=== PATIENT | male | born 1940 | race Caucasian/White ===

== ENCOUNTER → 2021-02-02 10:38 | Outpatient (BNVA) | payer MEDICARE, MEDICAID, SELFPAY | PROVIDERS: PCP Internal Medicine; Visit Provider Urology | DX: N40.0 Benign prostatic hyperplasia without lower urinary tract symptoms (principal) | CPT/HCPCS: 99202 ==

== ENCOUNTER 2021-05-02 07:35 | Outpatient (REF) | payer MEDICARE, MEDICAID, SELFPAY ==
[2021-05-02 10:41] LABS: Estimated Average Glucose 197 mg/dL; Hemoglobin A1c % 8.5 %
[2021-05-02 10:43] LABS: Alanine Aminotransferase 25 U/L (0-40); Albumin Level 4.4 g/dL (3.5-5.0); Alkaline Phosphatase 38 U/L (39-117); Anion Gap 14 (12-20); Aspartate Amino Transferase 16 U/L (5-37); Bilirubin Total 0.5 mg/dL (0.0-1.0); Blood Urea Nitrogen 16 mg/dL (9-16); Calcium 9.9 mg/dL (8.4-10.2); Carbon Dioxide 27 mmol/L (22-29); Chloride 103 mmol/L (96-108); Estimated Glomerular Filt Rate > 60; Glucose Fasting 150 mg/dL (60-99); Potassium 4.3 mmol/L (3.3-5.1); Sodium 140 mmol/L (135-145); Total Protein 7.2 g/dL (6.5-8.0)
== END 2021-05-02 07:36 | disposition home or self-care (01) ==
LOC: HO.10HDL 07:35
PROVIDERS: Visit Provider Internal Medicine
DX: E11.65 Type 2 diabetes mellitus with hyperglycemia (principal); E78.00 Pure hypercholesterolemia, unspecified; I10 Essential (primary) hypertension
CPT/HCPCS: 36415; 80053; 83036

== ENCOUNTER 2021-08-05 07:45 | Outpatient (REF) | payer MEDICARE, MEDICAID, SELFPAY ==
[2021-08-05 11:34] LABS: Alanine Aminotransferase 18 U/L (0-40); Albumin Level 4.3 g/dL (3.5-5.0); Alkaline Phosphatase 41 U/L (39-117); Anion Gap 13 (12-20); Aspartate Amino Transferase 16 U/L (5-37); Bilirubin Total 0.4 mg/dL (0.0-1.0); Blood Urea Nitrogen 20 mg/dL (9-16); Calcium 9.6 mg/dL (8.4-10.2); Carbon Dioxide 28 mmol/L (22-29); Chloride 103 mmol/L (96-108); Estimated Glomerular Filt Rate > 60; Glucose Fasting 118 mg/dL (60-99); Potassium 4.3 mmol/L (3.3-5.1); Sodium 140 mmol/L (135-145); Total Protein 7.3 g/dL (6.5-8.0)
== END 2021-08-05 07:46 | disposition home or self-care (01) ==
LOC: HO.10HDL 07:45
PROVIDERS: Visit Provider Internal Medicine
DX: E11.65 Type 2 diabetes mellitus with hyperglycemia (principal); E78.00 Pure hypercholesterolemia, unspecified; I10 Essential (primary) hypertension; N40.0 Benign prostatic hyperplasia without lower urinary tract symptoms
CPT/HCPCS: 36415; 80053

== ENCOUNTER 2022-02-01 07:38 | Outpatient (REF) | payer MEDICARE, MEDICAID, SELFPAY ==
[2022-02-01 10:54] LABS: Estimated Average Glucose 194 mg/dL; Hemoglobin A1c % 8.4 %
[2022-02-01 11:00] LABS: Alanine Aminotransferase 20 U/L (0-40); Albumin Level 4.4 g/dL (3.5-5.0); Alkaline Phosphatase 41 U/L (39-117); Anion Gap 15 (12-20); Aspartate Amino Transferase 18 U/L (5-37); Bilirubin Total 0.3 mg/dL (0.0-1.0); Blood Urea Nitrogen 15 mg/dL (9-16); Calcium 9.4 mg/dL (8.4-10.2); Carbon Dioxide 27 mmol/L (22-29); Chloride 103 mmol/L (96-108); Estimated Glomerular Filt Rate > 60; Glucose Fasting 105 mg/dL (60-99); Potassium 4.1 mmol/L (3.3-5.1); Sodium 141 mmol/L (135-145); Total Protein 7.4 g/dL (6.5-8.0)
== END 2022-02-01 07:39 | disposition home or self-care (01) ==
LOC: HO.10HDL 07:38
PROVIDERS: Visit Provider Internal Medicine
DX: E11.65 Type 2 diabetes mellitus with hyperglycemia (principal); E78.00 Pure hypercholesterolemia, unspecified; I10 Essential (primary) hypertension; N40.0 Benign prostatic hyperplasia without lower urinary tract symptoms
CPT/HCPCS: 36415; 80053; 83036

== ENCOUNTER 2022-02-10 07:30 | Outpatient (REF) | payer MEDICARE, MEDICAID, SELFPAY ==
[2022-02-10 10:43] LABS: Alanine Aminotransferase 14 U/L (0-40); Albumin Level 4.2 g/dL (3.5-5.0); Alkaline Phosphatase 51 U/L (39-117); Anion Gap 14 (12-20); Aspartate Amino Transferase 12 U/L (5-37); Bilirubin Total 0.4 mg/dL (0.0-1.0); Blood Urea Nitrogen 22 mg/dL (9-16); Calcium 9.5 mg/dL (8.4-10.2); Carbon Dioxide 28 mmol/L (22-29); Chloride 102 mmol/L (96-108); Estimated Glomerular Filt Rate > 60; Glucose Random 152 mg/dL (60-115); Potassium 4.5 mmol/L (3.3-5.1); Sodium 139 mmol/L (135-145)
[2022-02-10 10:45] LABS: Estimated Average Glucose 194 mg/dL; Hemoglobin A1c % 8.4 %
[2022-02-13 14:12] LABS: Lyme Blot >10.00 index
[2022-02-14 08:06] LABS: Lyme Abs Screen POSITIVE
[2022-02-15 14:32] LABS: 18 KD (IgG) Band REACTIVE; 23 KD (IgG) Band REACTIVE; 23 KD (IgM) Band REACTIVE; 28 KD (IgG) Band REACTIVE; 30 KD (IgG) Band REACTIVE; 39 KD (IgM) Band NON-REACTIVE; 39KD (IgG) Band REACTIVE; 41 KD (IgM) Band NON-REACTIVE; 41KD (IgG) Band REACTIVE; 45 KD (IgG) Band REACTIVE; 58 KD (IgG) Band REACTIVE; 66 KD (IgG) Band REACTIVE; 93 KD (IgG) Band REACTIVE; Lyme IgG Blot Interp POSITIVE (NEGATIVE); Lyme IgM Blot Interp NEGATIVE (NEGATIVE)
== END 2022-02-10 07:31 | disposition home or self-care (01) ==
LOC: HO.10HDL 07:30
PROVIDERS: Visit Provider Internal Medicine
DX: E11.65 Type 2 diabetes mellitus with hyperglycemia (principal); E78.00 Pure hypercholesterolemia, unspecified; I10 Essential (primary) hypertension
CPT/HCPCS: 36415; 80053; 83036; 86617; 86618

== ENCOUNTER 2022-04-20 07:38 | Outpatient (REF) | payer MEDICARE, MEDICAID, SELFPAY ==
[2022-04-20 11:07] LABS: Estimated Average Glucose 189 mg/dL; Hemoglobin A1c % 8.2 %
[2022-04-20 11:10] LABS: Alanine Aminotransferase 22 U/L (0-40); Albumin Level 4.4 g/dL (3.5-5.0); Alkaline Phosphatase 34 U/L (39-117); Anion Gap 15 (12-20); Aspartate Amino Transferase 18 U/L (5-37); Bilirubin Total 0.5 mg/dL (0.0-1.0); Blood Urea Nitrogen 19 mg/dL (9-16); Calcium 9.8 mg/dL (8.4-10.2); Carbon Dioxide 27 mmol/L (22-29); Chloride 104 mmol/L (96-108); Estimated Glomerular Filt Rate > 60; Glucose Fasting 104 mg/dL (60-99); Potassium 4.2 mmol/L (3.3-5.1); Sodium 142 mmol/L (135-145); Total Protein 7.1 g/dL (6.5-8.0)
[2022-04-24 21:42] LABS: Lyme Blot 8.87 index
[2022-04-27 09:40] LABS: Lyme Abs Screen POSITIVE
[2022-04-27 09:53] LABS: 18 KD (IgG) Band REACTIVE; 23 KD (IgG) Band REACTIVE; 23 KD (IgM) Band REACTIVE; 28 KD (IgG) Band REACTIVE; 30 KD (IgG) Band REACTIVE; 39 KD (IgM) Band NON-REACTIVE; 39KD (IgG) Band REACTIVE; 41 KD (IgM) Band NON-REACTIVE; 41KD (IgG) Band REACTIVE; 45 KD (IgG) Band REACTIVE; 58 KD (IgG) Band REACTIVE; 66 KD (IgG) Band REACTIVE; 93 KD (IgG) Band REACTIVE; Lyme IgG Blot Interp POSITIVE (NEGATIVE); Lyme IgM Blot Interp NEGATIVE (NEGATIVE)
== END 2022-04-20 07:39 | disposition home or self-care (01) ==
LOC: HO.10HDL 07:38
PROVIDERS: Visit Provider Internal Medicine
DX: E11.65 Type 2 diabetes mellitus with hyperglycemia (principal); E78.00 Pure hypercholesterolemia, unspecified; I10 Essential (primary) hypertension; Z68.33 Body mass index [BMI] 33.0-33.9, adult
CPT/HCPCS: 36415; 80053; 83036; 86617; 86618

== ENCOUNTER 2022-08-03 07:47 | Outpatient (REF) | payer MEDICARE, MEDICAID, SELFPAY ==
[2022-08-03 10:56] LABS: MANUAL DIFF FLAG NO
[2022-08-03 11:25] LABS: Basophils Percent Auto 0.4 % (0-2); Eosinophils Absolute Auto 0.1 X10*3/uL (0.0-0.4); Eosinophils Percent Auto 1.9 % (0-4); Hematocrit 40.5 % (42.0-52.0); Hemoglobin 13.9 g/dl (14.0-18.0); Imm Gran Abs Auto 0.02 X10*3/uL (0.00-0.03); Imm Gran Pct Auto 0.3 % (0.0-0.4); Lymphocytes Absolute Auto 2.4 X10*3/uL (1.2-4.9); Lymphocytes Percent Auto 35.2 % (20-40); Mean Corpuscular HGB Conc 34.3 g/dl (31.0-36.0); Mean Corpuscular Volume 90.4 fL (80.0-98.0); Mean Platelet Volume 10.7 fL (9.4-12.4); Monocytes Absolute Auto 0.6 X10*3/uL (0.1-1.2); Monocytes Percent Auto 8.4 % (2-11); Neutrophils Absolute Auto 3.7 x10*3/uL (2.0-8.3); Neutrophils Percent Auto 53.8 % (45-73); Platelet Count 151 X10*3/uL (160-400); Red Blood Count 4.48 X10*6/uL (4.60-5.80); Red Cell Distribution Width 12.7 % (11.0-16.0); White Blood Count 6.9 X10*3/uL (4.8-10.8)
[2022-08-03 11:42] LABS: Microalbum/Creatinine Ratio Ur 8.7 ug/mg cr
[2022-08-03 11:50] LABS: Estimated Average Glucose 229 mg/dL; Hemoglobin A1c % 9.6 %
[2022-08-03 12:03] LABS: Alanine Aminotransferase 30 U/L (0-40); Albumin Level 4.1 g/dL (3.5-5.0); Alkaline Phosphatase 34 U/L (39-117); Anion Gap 14 (12-20); Aspartate Amino Transferase 19 U/L (5-37); Bilirubin Total 0.6 mg/dL (0.0-1.0); Blood Urea Nitrogen 13 mg/dL (9-16); Calcium 9.4 mg/dL (8.4-10.2); Carbon Dioxide 26 mmol/L (22-29); Chloride 107 mmol/L (96-108); Cholesterol 136 mg/dL; Estimated Glomerular Filt Rate > 60; Glucose Fasting 82 mg/dL (60-99); HDL Cholesterol 42 mg/dL; LDL Cholesterol Calculated 71 mg/dl; Sodium 143 mmol/L (135-145); Total Protein 6.6 g/dL (6.5-8.0); Triglycerides 119 mg/dL
[2022-08-03 12:06] LABS: Thyroid Stimulating Hormone 2.12 uIU/mL (0.32-4.0); Vitamin B12 494 pg/mL (200-900)
== END 2022-08-03 07:48 | disposition home or self-care (01) ==
LOC: HO.10HDL 07:47
PROVIDERS: Visit Provider Internal Medicine
DX: A69.20 Lyme disease, unspecified (principal); E11.65 Type 2 diabetes mellitus with hyperglycemia; I10 Essential (primary) hypertension; N40.1 Benign prostatic hyperplasia with lower urinary tract symptoms
CPT/HCPCS: 36415; 80053; 80061; 82043; 82607; 83036; 84443; 85025

== ENCOUNTER 2022-11-02 08:14 | Outpatient (REF) | payer MEDICARE, MEDICAID, SELFPAY ==
[2022-11-02 10:44] LABS: Estimated Average Glucose 186 mg/dL; Hemoglobin A1c % 8.1 %
[2022-11-02 10:57] LABS: Alanine Aminotransferase 24 U/L (0-40); Albumin Level 4.2 g/dL (3.5-5.0); Alkaline Phosphatase 34 U/L (39-117); Anion Gap 10 (12-20); Aspartate Amino Transferase 19 U/L (5-37); Bilirubin Total 0.5 mg/dL (0.0-1.0); Blood Urea Nitrogen 17 mg/dL (9-16); Calcium 9.4 mg/dL (8.4-10.2); Carbon Dioxide 29 mmol/L (22-29); Chloride 106 mmol/L (96-108); Estimated Glomerular Filt Rate > 60; Glucose Random 112 mg/dL (60-115); Potassium 4.4 mmol/L (3.3-5.1); Sodium 141 mmol/L (135-145); Total Protein 6.9 g/dL (6.5-8.0)
[2022-11-02 11:06] LABS: Prostate Specific Antigen Scr 1.06 ng/mL (<0.05-4.0)
== END 2022-11-02 08:15 | disposition home or self-care (01) ==
LOC: HO.10HDL 08:14
PROVIDERS: Visit Provider Internal Medicine
DX: Z00.00 Encounter for general adult medical examination without abnormal findings (principal); E11.65 Type 2 diabetes mellitus with hyperglycemia; I10 Essential (primary) hypertension; N40.0 Benign prostatic hyperplasia without lower urinary tract symptoms; Z12.5 Encounter for screening for malignant neoplasm of prostate
CPT/HCPCS: 36415; 80053; 83036; 84153

== ENCOUNTER 2023-02-01 08:27 | Outpatient (REF) | payer MEDICARE, MEDICAID, SELFPAY ==
[2023-02-01 11:14] LABS: Alanine Aminotransferase 27 U/L (0-40); Albumin Level 4.4 g/dL (3.5-5.0); Alkaline Phosphatase 34 U/L (39-117); Anion Gap 13 (12-20); Aspartate Amino Transferase 20 U/L (5-37); Bilirubin Total 0.4 mg/dL (0.0-1.0); Blood Urea Nitrogen 14 mg/dL (9-16); Calcium 9.9 mg/dL (8.4-10.2); Carbon Dioxide 28 mmol/L (22-29); Chloride 106 mmol/L (96-108); Estimated Glomerular Filt Rate > 60; Glucose Random 140 mg/dL (60-115); Potassium 4.1 mmol/L (3.3-5.1); Sodium 143 mmol/L (135-145); Total Protein 7.4 g/dL (6.5-8.0)
[2023-02-01 11:19] LABS: Estimated Average Glucose 177 mg/dL; Hemoglobin A1c % 7.8 %
== END 2023-02-01 08:28 | disposition home or self-care (01) ==
LOC: HO.10HDL 08:27
PROVIDERS: Visit Provider Internal Medicine
DX: E11.65 Type 2 diabetes mellitus with hyperglycemia (principal); E78.00 Pure hypercholesterolemia, unspecified; I10 Essential (primary) hypertension
CPT/HCPCS: 36415; 80053; 83036

== ENCOUNTER 2023-05-03 07:50 | Outpatient (REF) | payer MEDICARE, MEDICAID, SELFPAY ==
[2023-05-03 11:09] LABS: Alanine Aminotransferase 23 U/L (0-40); Albumin Level 4.3 g/dL (3.5-5.0); Alkaline Phosphatase 36 U/L (39-117); Anion Gap 12 (12-20); Aspartate Amino Transferase 19 U/L (5-37); Bilirubin Total 0.4 mg/dL (0.0-1.0); Blood Urea Nitrogen 17 mg/dL (9-16); Calcium 9.6 mg/dL (8.4-10.2); Carbon Dioxide 31 mmol/L (22-29); Chloride 103 mmol/L (96-108); Estimated Glomerular Filt Rate > 60; Glucose Random 128 mg/dL (60-115); Potassium 3.9 mmol/L (3.3-5.1); Sodium 142 mmol/L (135-145); Total Protein 7.4 g/dL (6.5-8.0)
[2023-05-03 11:19] LABS: Estimated Average Glucose 192 mg/dL; Hemoglobin A1c % 8.3 % (<6.0)
== END 2023-05-03 07:51 | disposition home or self-care (01) ==
LOC: HO.10HDL 07:50
PROVIDERS: Visit Provider Internal Medicine
DX: E11.65 Type 2 diabetes mellitus with hyperglycemia (principal); E78.00 Pure hypercholesterolemia, unspecified; I10 Essential (primary) hypertension
CPT/HCPCS: 36415; 80053; 83036

== ENCOUNTER 2023-11-05 07:46 | Outpatient (REF) | payer MEDICARE, MEDICAID, SELFPAY ==
[2023-11-05 09:55] LABS: Estimated Average Glucose 169 mg/dL; Hemoglobin A1c % 7.5 % (<6.0)
[2023-11-05 10:15] LABS: Alanine Aminotransferase 25 U/L (0-40); Albumin Level 4.2 g/dL (3.5-5.0); Alkaline Phosphatase 35 U/L (39-117); Anion Gap 18 (12-20); Aspartate Amino Transferase 21 U/L (5-37); Bilirubin Total 0.4 mg/dL (0.0-1.0); Blood Urea Nitrogen 18 mg/dL (9-16); Calcium 9.3 mg/dL (8.4-10.2); Carbon Dioxide 25 mmol/L (22-29); Chloride 104 mmol/L (96-108); Estimated Glomerular Filt Rate > 60; Glucose Random 134 mg/dL (60-115); Potassium 3.9 mmol/L (3.3-5.1); Sodium 143 mmol/L (135-145); Total Protein 7.3 g/dL (6.5-8.0)
== END 2023-11-05 07:47 | disposition home or self-care (01) ==
LOC: HO.10HDL 07:46
PROVIDERS: Visit Provider Internal Medicine
DX: E11.9 Type 2 diabetes mellitus without complications (principal); E78.00 Pure hypercholesterolemia, unspecified; I10 Essential (primary) hypertension; M17.9 Osteoarthritis of knee, unspecified
CPT/HCPCS: 36415; 80053; 83036

== ENCOUNTER 2023-12-25 13:04 | Outpatient (AMB) | payer MEDICARE, MEDICAID, SELFPAY ==
--- NOTE | 2023-12-25 13:11 | MHC.OFFVIS ---
Intake Visit Reasons: multiple urogenital complaints Intake Note: Patient is present for Multiple urogenital complaints Urology Medication:tamsulosin,finasteride Antibiotic Allergy:none Blood Thinner:none today PVR: 0ML Food Vendor Required: No Allergies YOGI Inhibitors Adverse Reaction (Intermediate, Verified 12/25/23 13:13) cough HPI Comments Details: Diana is a very pleasant male. He is a patient of Dr. Chen. He is seen for the following urologic conditions - elevated PSA - lower urinary tract symptoms - spermatocele Here for discomfort on left side testicle On examination has moderate sized left spermatocele, question of right hydrocele May also have component of hernia although likely to be fat within the inguinal canal Plan for scrotal ultrasound before follow-up visit Lower urinary tract symptoms Longstanding BPH Treated with finasteride PSA - 01/11 1.8, 12/13 2.4, 11/14 1.1 Symptoms well controlled Nocturia 1 time per night with normal stream Discussed slight elevation in PSA Plan on bladder ultrasound and repeat PSA in 6 months [facility] Medical History (Updated 12/25/23 @ 14:19 by Myron Leonard MD) Obesity Zoster High cholesterol Diabetes mellitus Chronic rheumatic arthritis BPH (benign prostatic hyperplasia) Hypertension Family History (Updated 02/02/21 @ 11:16 by Marj Goyal RN) Father HTN (hypertension) CAD (coronary artery disease) Diabetes Mother Kidney disease Social History (Updated 02/02/21 @ 11:17 by Marj Goyal RN) 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 Review of Systems Const Denies chills and Denies fever(s) Card Reports no additional complaints and Denies syncope Resp Denies cough GI Denies abdominal pain and Denies heartburn Reports as per HPI and Denies change in libido Neuro Denies syncope Psych Denies change in libido Endo Denies change in libido Physical Exam Const General: cooperative, healthy appearing, comfortable and no acute distress Orientation/consciousness: patient oriented x3 HEENT Face and sinus: Yes normal facial exam Mouth: moist mucous membranes Neck Neck: Yes normal visual inspection, Yes full ROM and Yes trachea midline Chest Chest palpation & inspection: normal inspection of the chest Resp Effort & Inspection: normal respiratory effort, able to speak in complete sentences and no respiratory distress GI Inspection: Yes normal to inspection Back/Spine/Pelvis Cervical Spine: normal cervical lordosis Thoracic/Lumbar Spine: thoracic and lumbar spine normal to inspection Skin General skin exam: no rashes or lesions noted Neuro General: patient oriented x3, gait normal, tone normal and moves all extremities Extrem General: Yes normal to inspection and Yes capillary refill normal Assessment & Plan Assessment & Plan (1) Spermatocele: Code(s): N43.40 - Spermatocele of epididymis, unspecified Category: Medical (2) BPH (benign prostatic hyperplasia): Code(s): N40.0 - Benign prostatic hyperplasia without lower urinary tract symptoms Category: Medical Plan Six-month follow-up scrotal ultrasound Orders: Orders US scrotum 6 Months N43.3 - Hydrocele, unspecified, N43.40 - Spermatocele of epididymis, unspecified Patient Instructions: Imaging studies, laboratory and physical exam results were discussed and reviewed in detail. No major barriers to patient understanding were identified. An opportunity to ask questions regarding the treatment plan was provided. All questions were answered. The patient expressed understanding and agreement with the above treatment plan. The patient is aware they should contact our office by phone for worsening of their current condition or the appearance of new urologic symptoms. Compliance is encouraged with any medications and followup testing that is ordered. It is a privilege to participate in the urologic care of your patient. If you have any questions or concerns regarding treatment for the above conditions, or other urologic issues, please do not hesitate to contact me. The office telephone contact is [phone]. This note is constructed using voice recognition software. While every effort has been made to ensure accuracy cooperative manager errors may have been included. Yours sincerely, Dr Myron Leonard MD, [facility] - Urology Providers of Expert, Compassionate Care for the Genitourinary System Coding Level of Care Code Est Pt Level 4 (80021) Diagnoses Spermatocele N43.40 BPH (benign prostatic hyperplasia) N40.0
== END 2023-12-25 14:46 | disposition home or self-care (01) ==
PROVIDERS: PCP Internal Medicine; Visit Provider Urology
DX: N43.41 Spermatocele of epididymis, single (principal); N40.0 Benign prostatic hyperplasia without lower urinary tract symptoms
CPT/HCPCS: 99213

== ENCOUNTER → 2023-12-25 13:04 | Outpatient (BNVA) | payer MEDICARE, MEDICAID, SELFPAY | PROVIDERS: PCP Internal Medicine; Visit Provider Urology | DX: N50.812 Left testicular pain (principal); N40.0 Benign prostatic hyperplasia without lower urinary tract symptoms; N43.40 Spermatocele of epididymis, unspecified; N43.3 Hydrocele, unspecified; Z79.899 Other long term (current) drug therapy | CPT/HCPCS: 99212 ==

== ENCOUNTER 2024-02-04 07:49 | Outpatient (REF) | payer MEDICARE, MEDICAID, SELFPAY ==
[2024-02-04 10:50] LABS: Alanine Aminotransferase 23 U/L (0-40); Albumin Level 4.6 g/dL (3.5-5.0); Alkaline Phosphatase 39 U/L (39-117); Anion Gap 17 (12-20); Aspartate Amino Transferase 17 U/L (5-37); Bilirubin Total 0.5 mg/dL (0.0-1.0); Blood Urea Nitrogen 17 mg/dL (9-16); Carbon Dioxide 27 mmol/L (22-29); Chloride 103 mmol/L (96-108); Estimated Average Glucose 163 mg/dL; Estimated Glomerular Filt Rate > 60; Glucose Random 131 mg/dL (60-115); Hemoglobin A1c % 7.3 % (<6.0); Potassium 3.9 mmol/L (3.3-5.1); Sodium 143 mmol/L (135-145); Total Protein 7.6 g/dL (6.5-8.0)
== END 2024-02-04 07:50 | disposition home or self-care (01) ==
LOC: HO.10HDL 07:49
PROVIDERS: Visit Provider Internal Medicine
DX: E11.9 Type 2 diabetes mellitus without complications (principal); E78.00 Pure hypercholesterolemia, unspecified; I10 Essential (primary) hypertension
CPT/HCPCS: 36415; 80053; 83036

== ENCOUNTER 2024-05-08 07:46 | Outpatient (REF) | payer MEDICARE, MEDICAID, SELFPAY ==
[2024-05-08 11:02] LABS: Alanine Aminotransferase 32 U/L (0-40); Albumin Level 4.3 g/dL (3.5-5.0); Alkaline Phosphatase 43 U/L (39-117); Anion Gap 11 (12-20); Aspartate Amino Transferase 21 U/L (5-37); Bilirubin Total 0.3 mg/dL (0.0-1.0); Blood Urea Nitrogen 20 mg/dL (9-16); Calcium 9.4 mg/dL (8.4-10.2); Carbon Dioxide 29 mmol/L (22-29); Chloride 105 mmol/L (96-108); Estimated Glomerular Filt Rate > 60; Glucose Random 131 mg/dL (60-115); Potassium 3.6 mmol/L (3.3-5.1); Sodium 141 mmol/L (135-145); Total Protein 7.2 g/dL (6.5-8.0)
[2024-05-08 14:12] LABS: Estimated Average Glucose 192 mg/dL; Hemoglobin A1C 262.5869 umol/L; Hemoglobin A1c % 8.3 % (<6.0); Total Hemoglobin (HGBA1C) 3920.0568 umol/L
== END 2024-05-08 07:47 | disposition home or self-care (01) ==
LOC: HO.10HDL 07:46
PROVIDERS: Visit Provider Internal Medicine
DX: E11.9 Type 2 diabetes mellitus without complications (principal); E78.00 Pure hypercholesterolemia, unspecified; I10 Essential (primary) hypertension
CPT/HCPCS: 36415; 80053; 83036

== ENCOUNTER 2024-05-21 08:34 | Outpatient (AMB) | payer MEDICARE, MEDICAID, SELFPAY ==
--- NOTE | 2024-05-21 08:38 | A.OFFVIS_ITS ---
Vital Signs 05/21/24 08:45 Height 5 ft 4 in Weight 201 lb BMI 34.5 BP 164/72 H Blood Pressure Location Rt brachial Position Sitting Pulse 81 Intake Visit Reasons: Lipoma neck causing neck pain Intake Note: Patient referred by pcp Dr. Chen for lipoma on neck. Present for 10yrs. Patient c/o: states growth is causing neck pain that spreads down to shoulder. Denies oozing. Ham Marker Required: No Accompanied by: Self / Same As Patient Allergies YOGI Inhibitors Adverse Reaction (Intermediate, Verified 05/21/24 08:43) cough HPI Comments Details: Patient presents with a symptomatic, enlarging right neck soft tissue mass. He has had this many years time. It is increasing in size and he would like to have it removed. He has no such lesions elsewhere. 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 No other cervical or periclavicular axillary adenopathy demonstrated Chest Other: Chest breath sounds bilaterally, HS 1 in 2 GI Other: Abdomen is soft, benign Assessment & Plan Assessment & Plan (1) Lipoma of neck: Code(s): D17.0 - Benign lipomatous neoplasm of skin and subcutaneous tissue of head, face and neck Category: Surgical Plan Risks, benefits, alternatives of excision of right neck lipoma were reviewed with the patient and included but not limited to bleeding, infection, recurrence, numbness, pain, scarring, seroma formation the patient wishes to proceed. All questions answered. Arrangements were made for this on a day which is convenient for him. Coding Level of Care Code New Pt Level 5 (96234) Diagnoses Lipoma of neck D17.0
[2024-05-21 08:45] VITALS: BP 164/72; PULSE 81; BMI 34.5
== END 2024-05-21 09:00 | disposition home or self-care (01) ==
PROVIDERS: PCP Internal Medicine; Referring Provider Internal Medicine; Visit Provider Surgery
DX: D17.0 Benign lipomatous neoplasm of skin and subcutaneous tissue of head, face and neck (principal)
CPT/HCPCS: 99204

== ENCOUNTER → 2024-05-21 08:34 | Outpatient (BNVA) | payer MEDICARE, MEDICAID, SELFPAY | PROVIDERS: PCP Internal Medicine; Referring Provider Internal Medicine; Visit Provider Surgery | DX: D17.0 Benign lipomatous neoplasm of skin and subcutaneous tissue of head, face and neck (principal) | CPT/HCPCS: 99202 ==

== ENCOUNTER 2024-06-26 14:03 | Outpatient (REF) | payer MEDICARE, OTHER, SELFPAY | END 2024-06-26 14:04 | disposition home or self-care (01) | LOC: HO.US 14:03 | PROVIDERS: PCP Internal Medicine; Visit Provider Urology | DX: Z13.89 Encounter for screening for other disorder (principal) ==

== ENCOUNTER 2024-06-27 06:29 | Day surgery (SDC) | payer MEDICARE, OTHER, SELFPAY ==
--- NOTE | 2024-06-24 13:36 | P.CONAN_ITS ---
Documented by User: Hilda Caruso NP 06/24/24 13:37 HPI - Anesthesia Eval Consult details Narrative: 83yo M for Wide Local Excision Neck Mass Anesthesia Pre-Procedure Meds Is the patient on any of the following meds?: GLP1/DPP4 PMFSH Active Problems Active Problems: All Active Problems Lipoma of neck (Acute) Spermatocele (Acute) High cholesterol (Acute) Diabetes mellitus (Acute) Chronic rheumatic arthritis (Acute) BPH (benign prostatic hyperplasia) (Acute) Hypertension (Acute) Past Medical History Medical History Obesity Zoster High cholesterol Diabetes mellitus Chronic rheumatic arthritis BPH (benign prostatic hyperplasia) Hypertension Family History Family History Father HTN (hypertension) CAD (coronary artery disease) Diabetes Mother Kidney disease Surgical History Surgical History No pertinent past surgical history Social History Social History Are you a primary director of home care hospice to a significant other at home: No Do you presently have visiting nurse or other home services: No Patient Tobacco Use Status: Former Tobacco user Tobacco use type: Cigarette Use of substances other than those prescribed or required for medical reasons: No Have you been hit, kicked, punched, or otherwise hurt by someone within the past year? 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 Meds Allergies Allergy/AdvReac Type Severity Reaction Status Date / Time YOGI Inhibitors AdvReac Intermediate cough Verified 06/27/24 06:45 Home Medications ?Medication ?Instructions ?Recorded ?Confirmed ?Last Taken ?Type finasteride 5 mg tablet 5 mg PO DAILY 02/02/21 05/26/24 Unknown History fluticasone furoate 200 1 inh inhalation DAILY 02/02/21 05/26/24 Unknown History mcg-vilanterol 25 mcg/dose inhalation powder (Breo Ellipta) lancets 28 gauge (FreeStyle 02/02/21 05/26/24 Unknown History Lancets) loratadine 10 mg disintegrating 10 mg PO DAILY 02/02/21 05/26/24 Unknown History tablet losartan 100 mg tablet 100 mg PO DAILY 02/02/21 05/26/24 Unknown History metformin 1,000 mg tablet 1,000 mg PO BID 02/02/21 05/26/24 Unknown History naproxen 500 mg tablet (Naprosyn) 500 mg PO BID 02/02/21 05/26/24 Unknown History rosuvastatin 10 mg tablet 10 mg PO DAILY 02/02/21 05/26/24 Unknown History tamsulosin 0.4 mg capsule 0.4 mg PO DAILY 02/02/21 05/26/24 Unknown History Exam Pertinent Lab Results Pertinent Lab Results: Laboratory Tests 05/08/24 07:49 Sodium 141 Potassium 3.6 Chloride 105 Carbon Dioxide 29 BUN 20 H Creatinine 0.94 Assessment and Plan Assessment Anesthesia Assessment: Chart Reviewed Documented by User: Vanessa Russell MD 06/27/24 07:23 [facility] Past Medical History Medical History Obesity Zoster High cholesterol Diabetes mellitus Chronic rheumatic arthritis BPH (benign prostatic hyperplasia) Hypertension Family History Family History Father HTN (hypertension) CAD (coronary artery disease) Diabetes Mother Kidney disease Surgical History Surgical History No pertinent past surgical history History of Problems with Anesthesia: No Social History Social History Are you a primary director of home care hospice to a significant other at home: No Do you presently have visiting nurse or other home services: No Patient Tobacco Use Status: Former Tobacco user Tobacco use type: Cigarette Use of substances other than those prescribed or required for medical reasons: No Have you been hit, kicked, punched, or otherwise hurt by someone within the past year? 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 Meds Allergies Allergy/AdvReac Type Severity Reaction Status Date / Time YOGI Inhibitors AdvReac Intermediate cough Verified 06/27/24 06:45 Home Medications ?Medication ?Instructions ?Recorded ?Confirmed ?Last Taken ?Type finasteride 5 mg tablet 5 mg PO DAILY 02/02/21 05/26/24 Unknown History fluticasone furoate 200 1 inh inhalation DAILY 02/02/21 05/26/24 Unknown History mcg-vilanterol 25 mcg/dose inhalation powder (Breo Ellipta) lancets 28 gauge (FreeStyle 02/02/21 05/26/24 Unknown History Lancets) loratadine 10 mg disintegrating 10 mg PO DAILY 02/02/21 05/26/24 Unknown History tablet losartan 100 mg tablet 100 mg PO DAILY 02/02/21 05/26/24 Unknown History metformin 1,000 mg tablet 1,000 mg PO BID 02/02/21 05/26/24 Unknown History naproxen 500 mg tablet (Naprosyn) 500 mg PO BID 02/02/21 05/26/24 Unknown History rosuvastatin 10 mg tablet 10 mg PO DAILY 02/02/21 05/26/24 Unknown History tamsulosin 0.4 mg capsule 0.4 mg PO DAILY 02/02/21 05/26/24 Unknown History Exam Airway Mallampati Class: III TM Dist: >3cm Neck ROM: Limited Loose/Missing/Broken Teeth: No Heart: RRR Lungs: CTA Assessment and Plan Assessment Anesthesia Assessment: Anesthesia Plan Discussed Final Anesthetic Review History of Problems with Anesthesia: No NPO: Yes ASA Class: III Final Preanesthetic Review: Meds/Allgs Chart Reviewed, Consent Obtained/Reviewed and Anes Risks/Benef Reviewed Patient Risk: Intermediate Procedure Risk: Low Anesthetic Plan Anesthetic Plan: GA Disposition: Standard PACU
--- NOTE | 2024-06-26 13:15 | MHC.SHP ---
Pre-Procedural Eval Section A - 24 Hr Update-Section A only Date of Service: 06/27/24 The patient is an INPATIENT: No Changes since office visit: No Cold of Flu in the past 2 weeks, No New Medical Problems, No Changes in Medication and No Patient answered all questions Section B - Complete if H&P > 30 days Chief Complaint: Benign lipomatous neoplasm of skin and subcutaneou Allergies: Allergies Allergy/AdvReac Type Severity Reaction Status Date / Time YOGI Inhibitors AdvReac Intermediate cough Verified 05/21/24 08:43 Review of Systems Sugical H&P ROS: Negative: Constitution, Cardiovascular, Respiratory, Neurological, Psychiatric, Hem-Onc, Allergic/Immunologic, Gastrointestinal, Genitourinary, Musculoskeletal, Integumentary, Endocrine and Eyes/Ears/Nose/Throat Exam Surgical H&P Exam: Normal: HEENT, Normal: Heart, Normal: Lungs, Normal: Extremities, Normal: Abdomen, Normal: Skin and Normal: Neurological Plan I have reviewed the history and physical and performed a pertinent physical examination on my patient. No changes have occurred unless specified. Time Spent With Patient Time: Total time managing care of this patient today ____ minutes.
[2024-06-27 06:54] VITALS: BP 156/69; PULSE 79; RESP 16; TEMP 36.2; O2SAT 98; BMI 30.4
--- NOTE | 2024-06-27 07:00 | PC.NURSE ---
Patient in preop. 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 Patient unable to verify what medications he takes however does state that he does NOT take Tradjenta. This medication removed from med list. Dr. Russell made aware.
[2024-06-27] MEDS: Lactated Ringers 1,000 ML 100 ML IVCONT (07:08)
--- NOTE | 2024-06-27 08:19 | W.PM.OPN ---
Operative Note Operative Note Date of Service: 06/27/24 Narrative: Preoperative diagnosis: [] Right supraclavicular lipoma Postop diagnosis: [] The same Procedure [] wide local excision right supraclavicular lipoma Surgeon: [] Salvador Drawing Machine Operator: [] Smiley Type of Anesthesia: [] General Indication for surgery: [] 6 x 5 multi lobular lipoma of the right supraclavicular area extending into the retro clavicular area Findings: [] Patient brought to the operating room, placed on operative table supine position, after an adequate level of general anesthesia was induced, patient had a shoulder roll placed, neck extended, and the right neck and chest area were prepped and draped in usual sterile fashion using a transverse incision in the supraclavicular area of through a skin crease over the mass in question, this carried down through skin, subcutaneous tissue, platysma muscle. Blunt dissection demonstrated the lipoma which was multi lab be related and extended into the retro clavicular area. Using essentially gentle blunt dissection and digital dissection, the lipoma was eventually enucleated. Loose areolar tissue was bovied under direct vision. A vessel was traversing into this mass and this was clamped, cut, and ligated using 2-0 Vicryl sutures. Specimen sent to pathology. Wound was irrigated, secured hemostasis, and closed in the following manner; platysma muscle was reapproximated using interrupted 3-0 Vicryl suture. Interrupted inverted deep dermal 3-0 Vicryl sutures followed by running subcuticular 4-0 Vicryl sutures were placed. Steri-Strips and sterile dressings were applied. Wound was infiltrated at the beginning at the end of the case with 0.5% Marcaine/1% lidocaine. Sponge, needle, and instrument counts were reported correct. Patient tolerated the procedure well and emerged from anesthesia stable condition. EBL minimal
[2024-06-27 08:22] VITALS: BP 155/73; PULSE 74; RESP 18; TEMP 36.6; O2SAT 94
[2024-06-27 08:27] VITALS: BP 157/72; PULSE 72; RESP 17; O2SAT 95
[2024-06-27 08:32] VITALS: BP 157/69; PULSE 76; RESP 16; O2SAT 94
[2024-06-27 08:37] VITALS: BP 149/50; PULSE 70; RESP 17; O2SAT 95
[2024-06-27 08:54] VITALS: BP 151/66; PULSE 66; RESP 17; TEMP 36.1; O2SAT 96
== END 2024-06-27 09:14 | disposition home or self-care (01) ==
PROVIDERS: PCP Internal Medicine; Visit Provider Surgery
PROC: (CPT 21554; principal; 2024-06-27 07:30)
DX: D17.0 Benign lipomatous neoplasm of skin and subcutaneous tissue of head, face and neck (principal); E66.9 Obesity, unspecified; Z68.34 Body mass index [BMI] 34.0-34.9, adult; I10 Essential (primary) hypertension; E78.00 Pure hypercholesterolemia, unspecified; E11.9 Type 2 diabetes mellitus without complications; M06.80 Other specified rheumatoid arthritis, unspecified site; B02.9 Zoster without complications; Z79.1 Long term (current) use of non-steroidal anti-inflammatories (NSAID); Z79.51 Long term (current) use of inhaled steroids; Z79.84 Long term (current) use of oral hypoglycemic drugs; Z79.899 Other long term (current) drug therapy; Z88.8 Allergy status to other drugs, medicaments and biological substances; Z87.891 Personal history of nicotine dependence
CPT/HCPCS: 21554; 88304; J0690; J2003; J2704; J2795; J3010

== ENCOUNTER → 2024-06-27 06:29 | Outpatient (BNV) | payer MEDICARE, MEDICAID, SELFPAY | PROVIDERS: PCP Internal Medicine; Visit Provider Surgery | DX: D17.0 Benign lipomatous neoplasm of skin and subcutaneous tissue of head, face and neck (principal) | CPT/HCPCS: 21931 ==

== ENCOUNTER 2024-07-01 12:41 | Outpatient (AMB) | payer MEDICARE, OTHER, SELFPAY ==
--- NOTE | 2024-07-01 12:54 | A.OFFVIS_ITS ---
Intake Visit Reasons: wound check Allergies YOGI Inhibitors Adverse Reaction (Intermediate, Verified 06/27/24 06:45) cough Medication List - Last Reconciled 07/01/24 by Kane Franco MD finasteride 5 mg PO DAILY fluticasone furoate-vilanterol 200-25 mcg/dose (Breo Ellipta) 1 inh inhalation DAILY hydrocodone-acetaminophen 5-325 mg 1 tab PO Q4-6H PRN lancets (FreeStyle Lancets) As directed loratadine 10 mg PO DAILY losartan 100 mg PO DAILY metformin 1,000 mg PO BID naproxen (Naprosyn) 500 mg PO BID rosuvastatin 10 mg PO DAILY tamsulosin 0.4 mg PO DAILY HPI Comments Details: Patient was status post right supraclavicular fossa tumor/large lipoma excision. Presents here for follow-up. His only complaint is that His right arm feels cooler than the contralateral left. He is otherwise able to do his daily functions and activities with no incisional pain and no limitations regarding activity for his right upper extremity. He thinks perhaps he has a little more fatigue in the arm with extremes of motion. O2 saturation via left hand 95%. Right hand 89% Pathology was benign consistent with a large lipoma [facility] Medical History (Updated 07/01/24 @ 12:54 by Kane Franco MD) Obesity Zoster High cholesterol Diabetes mellitus Chronic rheumatic arthritis BPH (benign prostatic hyperplasia) Hypertension Surgical History (Updated 07/01/24 @ 12:59 by Kane Franco MD) H/O colonoscopy No pertinent past surgical history Family History Father HTN (hypertension) CAD (coronary artery disease) Diabetes Mother Kidney disease Social History Are you a primary career agent to a significant other at home: No Do you presently have visiting nurse or other home services: No Patient Tobacco Use Status: Former Tobacco user Tobacco use type: Cigarette 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 Similarly he was able to re- dress himself with no right upper extremity issues. Neck Other: Incision clean dry and intact. Patient had modest amount of swelling/edema, which was expected secondary to the extensive dissection performed at surgery but no evidence of any infection Extrem Other: Right upper extremity/hand is mildly cooler than the left. The arm is grossly neurovascularly intact. Patient has good hand, elbow , and shoulder movement and equal strength to the contralateral left upper extremity. Left radial pulse palpable. Right appears diminished when compared to left. Assessment & Plan Assessment & Plan (1) History of excision of mass: Code(s): Z98.890 - Other specified postprocedural states Category: Surgical (2) Postop check: Code(s): Z09 - Encounter for follow-up examination after completed treatment for conditions other than malignant neoplasm Category: Surgical Plan At present, patient's symptoms may be related to the extent of the procedure in which the mass in question required significant blunt dissection in the retro clavicular area resulting in significant edema and seroma formation. This swelling may be applying some pressure to the vascular structures or autonomic nervous innervation to the right upper extremity. At present, no evidence of any upper extremity ischemia. Current plan is to arrange for ultrasound arterial evaluation of the right arm and patient will see me after the study. All questions answered. Orders: Orders US arterial duplex UE RT 07/01/24 M79.601 - Pain in right arm Coding Level of Care Code Global (27290) Diagnoses History of excision of mass Z98.890 Postop check Z09
== END 2024-07-01 12:53 | disposition home or self-care (01) ==
PROVIDERS: PCP Internal Medicine; Visit Provider Surgery
DX: Z98.890 Other specified postprocedural states (principal); Z09 Encounter for follow-up examination after completed treatment for conditions other than malignant neoplasm
CPT/HCPCS: 99024

== ENCOUNTER → 2024-07-01 12:41 | Outpatient (BNVA) | payer MEDICARE, OTHER, SELFPAY | PROVIDERS: PCP Internal Medicine; Visit Provider Surgery | DX: Z09 Encounter for follow-up examination after completed treatment for conditions other than malignant neoplasm (principal); Z98.890 Other specified postprocedural states | CPT/HCPCS: 99212 ==

== ENCOUNTER 2024-07-08 10:04 | Outpatient (AMB) | payer MEDICARE, MEDICAID, SELFPAY ==
--- NOTE | 2024-07-08 10:12 | A.OFFVIS_ITS ---
Intake Visit Reasons: S/P WLE Rt. neck mass Intake Note: Patient here s/p wide local excision right supraclavicular lipoma. Reports incision healing well. Patient c/o: feels hard under scar line. Surgery: 06-27-2024 Loans Consultant Required: No Accompanied by: Self / Same As Patient Allergies YOGI Inhibitors Adverse Reaction (Intermediate, Verified 07/08/24 10:12) cough HPI Comments Details: Patient presents for wound follow-up. He noticed that his incision is a bit firm and would like to have it evaluated. He was right upper extremity is functioning well. As noted from the last visit , patient states it will occasionally get fatigued with extremes of motion but otherwise no other issues. Right hand is little cooler than the left. [facility] Medical History (Updated 07/01/24 @ 12:54 by Kane Franco MD) Obesity Zoster High cholesterol Diabetes mellitus Chronic rheumatic arthritis BPH (benign prostatic hyperplasia) Hypertension Surgical History (Updated 07/01/24 @ 12:59 by Kane Franco MD) H/O colonoscopy No pertinent past surgical history Family History Father HTN (hypertension) CAD (coronary artery disease) Diabetes Mother Kidney disease Social History Are you a primary home care aide to a significant other at home: No Do you presently have visiting nurse or other home services: No Patient Tobacco Use Status: Former Tobacco user Tobacco use type: Cigarette 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 The firmness of the incision is a combination of the inside 2 layers of sutures; subcuticular and deep dermal sutures along with the seroma postprocedure which is expected secondary to the large mass that was excised.. Right upper extremities grossly neurovascularly intact. Bilateral radial pulses difficult to palpate. Right hand is slightly cooler than the left. Assessment & Plan Assessment & Plan (1) Postop check: Code(s): Z09 - Encounter for follow-up examination after completed treatment for conditions other than malignant neoplasm Category: Surgical Plan Patient was been given local instructions. Patient was instructed that his sutures will eventually resolve in 6-8 weeks and the firmness will improve. He is scheduled for ultrasound right upper extremity vasculature as well later this month and will see me after the this study for follow-up and review or follow- up p.r.n... All questions answered. Coding Level of Care Code Global (07831) Diagnoses Postop check Z09
== END 2024-07-08 10:32 | disposition home or self-care (01) ==
PROVIDERS: PCP Internal Medicine; Visit Provider Surgery
DX: Z09 Encounter for follow-up examination after completed treatment for conditions other than malignant neoplasm (principal)
CPT/HCPCS: 99024

== ENCOUNTER → 2024-07-08 10:04 | Outpatient (BNVA) | payer MEDICARE, MEDICAID, SELFPAY | PROVIDERS: PCP Internal Medicine; Visit Provider Surgery | DX: Z09 Encounter for follow-up examination after completed treatment for conditions other than malignant neoplasm (principal) | CPT/HCPCS: 99212 ==

== ENCOUNTER 2024-07-15 13:55 | Outpatient (REF) | payer MEDICARE, SELFPAY ==
--- NOTE | ~2024-07-15 | US_ITS ---
CLINICAL HISTORY: M79.601 - Pain in right arm Right upper extremity arterial duplex ultrasound Comparison: None. Findings: Continuous, pulsatile, arterial blood flow with normal waveforms is identified from the subclavian artery through the radial and ulnar arteries. No focal stenosis, aneurysm or occlusion identified. Mid right subclavian artery: Occluded. Right axillary artery peak systolic velocity is 40.4 centimeters/second. Proximal brachial artery peak systolic velocity 38.3 centimeters/second. Mid right brachial artery peak systolic velocity 53 centimeters/second. Distal right brachial artery peak systolic velocity 45 centimeters/second. Right radial artery peak systolic velocity 50 centimeters/second. 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 The midportion right ulnar artery with collateral reconstitution is peak velocity is 5 centimeters/second with monophasic waveform This document has been electronically signed by: Dino Yang MD on 07/15/2024 15:19:46
== END 2024-07-15 13:56 | disposition home or self-care (01) ==
LOC: HO.US 13:55
PROVIDERS: PCP Internal Medicine; Visit Provider Surgery
DX: M79.601 Pain in right arm (principal)
CPT/HCPCS: 93931

== ENCOUNTER → 2024-07-15 13:58 | Outpatient (BNV) | payer MEDICARE, SELFPAY | PROVIDERS: PCP Internal Medicine; Visit Provider Radiology Diagnostic Radiology | DX: M79.601 Pain in right arm (principal) | CPT/HCPCS: 93931 ==

== ENCOUNTER → 2024-07-30 09:26 | Outpatient (BNVA) | payer MEDICARE, SELFPAY | PROVIDERS: PCP Internal Medicine; Visit Provider Surgery | DX: I70.208 Unspecified atherosclerosis of native arteries of extremities, other extremity (principal); Z09 Encounter for follow-up examination after completed treatment for conditions other than malignant neoplasm; Z98.890 Other specified postprocedural states | CPT/HCPCS: 99212 ==

== ENCOUNTER 2024-08-21 08:46 | Outpatient (AMB) | payer MEDICARE, SELFPAY ==
--- NOTE | 2024-08-21 09:06 | A.OFFVIS_ITS ---
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 This happened after surgery for lipoma. 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 The symptoms began following a recent, lipoma removal by Dr. Franco which was done on 06/27/2024 for right subclavian lipoma removal.. 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 The arm's tiredness has impaired his ability to complete these tasks without frequent rests. Additionally, the coldness in the right hand has been a point of concern, possibly indicating compromised blood flow. The patient's current most significant limitation is an inability to perform former physical activities involving the arms, like push-ups, due to pain and fatigue. He had ultrasound performed on 07/15/2024 and now presents for evaluation. 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 Review of Systems Const All systems reviewed & are unremarkable except as noted in HPI and below Reports no additional complaints ENT Reports Normal hearing present Card Denies chest pain, Denies chest pain at rest, Denies chest pain with activity and Denies pedal edema Resp Denies cough GI Denies abdominal pain Musc Denies abnormal gait, Denies muscle cramps and Denies radiating pain into limb Skin/Breast Denies skin ulcer and Denies wounds Neuro Reports Normal hearing present and Denies abnormal gait Psych Reports no additional complaints Physical Exam Const General: cooperative, healthy appearing and comfortable Orientation/consciousness: oriented to person, oriented to place and oriented to time HEENT Head: Yes normal to inspection Neck Neck: Yes normal visual inspection Carotids: no bruits Chest Chest palpation & inspection: normal inspection of the chest Resp Effort & Inspection: normal respiratory effort and able to speak in complete sentences Auscultation: clear to auscultation bilaterally, no crackles, no rales, no rhonchi and no wheezes Cardio Rate: regular rate Rhythm: regular rhythm Heart sounds: S1 normal heart sound present and S2 normal heart sound present Bruits: no carotid bruits Peripheral pulses: Peripheral pulses 2+ throughout GI Inspection: Yes normal to inspection Skin Wounds: no wounds Hair: normal Neuro General: oriented to person, oriented to place and oriented to time Cranial nerves: Yes CN's II-XII intact bilaterally and Yes Normal hearing present Cognition (Neuro): normal cognition Motor exam (neuro): 5/5 motor strength present throughout Extrem Other: Right upper extremity brachial radial ulnar signals only left upper extremity had palpable pulses. In addition right upper extremity as 3 of 5 strength left upper extremity 5 of 5 strength General: No clubbing, No cyanosis and No edema Psych Appearance: grossly normal Mental Status: mental status grossly normal Speech and movement: Normal speech and movement present Results Reviewed Results Reviewed: Ultrasound dated 07/15/2024 was reviewed and was concerning for right subclavian occlusion. Assessment & Plan Assessment & Plan (1) Right subclavian artery occlusion: Code(s): I70.8 - Atherosclerosis of other arteries Category: Medical Plan: I discussed with the patient the potential diagnosis of a vascular obstruction in his right arm. We reviewed the need for a CT angiogram to visualize blood vessels and identify any blockages accurately. I explained the process of using a contrast dye for enhanced imaging and outlined the importance of pre-scan bloo d work. I mentioned the plan to determine precise intervention steps following confirmation from the scan results. I ensured the patient understood the benefits of this diagnostic approach and the associated risks with the contrast agent, including the standard risks of allergic reactions. We also discussed arrangements for follow-up visits once further information is obtained. The patient had an opportunity to ask questions regarding the treatment plan. All questions were answered. Imaging studies, laboratory studies and physical exam results were discussed and reviewed in detail. No major barriers to understanding were identified. The patient expressed understanding and agreement with the above treatment plan. The patient is aware they should contact our office by phone for worsening of the current condition or the appearance of new symptoms. Thank you for allowing me to participate in the vascular care of this patient. If you have any questions or concerns regarding the treatment for the above condition please do not hesitate to contact me. The office telephone contact is [phone]. This note is constructed using voice recognition software. While every effort has been made to ensure accuracy, anodizing line operator errors may have been included. Thank you for allowing me to participate in the care of your patient. Yours sincerely, Kelvin Chu MD, FACS, R.P.V.I. Orders: Orders Creatinine Today I70.8 - Atherosclerosis of other arteries Blood Urea Nitrogen Today I70.8 - Atherosclerosis of other arteries CT chest w IV con Today I70.8 - Atherosclerosis of other arteries Patient Instructions: - Undergo prescribed blood work prior to the CT angiogram. - Schedule the CT angiogram as instructed to assess potential vascular obstructions. - Monitor for any significant changes in symptoms, and seek medical attention if sudden worsening occurs. - Return for a follow-up visit after the completion of diagnostic tests. Coding Level of Care Code New Pt Level 4 (44344) Complex EM visit Add On G2211 Diagnoses Right subclavian artery occlusion I70.8
== END 2024-08-21 09:52 | disposition home or self-care (01) ==
PROVIDERS: PCP Internal Medicine; Visit Provider Surgery Vascular Surgery
DX: I70.8 Atherosclerosis of other arteries (principal)
CPT/HCPCS: 99204; G2211

== ENCOUNTER → 2024-08-21 08:46 | Outpatient (BNVA) | payer MEDICARE, SELFPAY | PROVIDERS: PCP Internal Medicine; Visit Provider Surgery Vascular Surgery | DX: I70.8 Atherosclerosis of other arteries (principal) | CPT/HCPCS: 99202 ==

== ENCOUNTER 2024-09-03 14:10 | Outpatient (REF) | payer MEDICARE, SELFPAY ==
--- NOTE | ~2024-09-03 | CT_ITS ---
CLINICAL HISTORY: I70.8 - Atherosclerosis of other arteries CT chest with contrast Comparison: None Findings: The heart size is normal. Calcification of the coronary vasculature. The visualized thyroid and mediastinum are unremarkable. No consolidation or effusion. The upper abdomen is unremarkable. The bones are intact. IMPRESSION: 1. No acute process. 2. Coronary artery disease. This document has been electronically signed by: Safia Barreto MD on 09/04/2024 17:53:12
[2024-09-03] MEDS: iohexoL 350 MG/ML 100 ML INFUS..BTL IV (14:52)
[2024-09-03 15:08] LABS: Creatinine POC 0.8 mg/dL (0.5-1.4); GFR POC > 60
== END 2024-09-03 14:11 | disposition home or self-care (01) ==
LOC: HO.CT 14:10
PROVIDERS: PCP Internal Medicine; Visit Provider Surgery Vascular Surgery
DX: I70.8 Atherosclerosis of other arteries (principal)
CPT/HCPCS: 71260; 82565; Q9967

== ENCOUNTER → 2024-09-03 14:12 | Outpatient (BNV) | payer MEDICARE, SELFPAY | PROVIDERS: PCP Internal Medicine; Visit Provider Radiology Diagnostic Radiology | DX: I25.10 Atherosclerotic heart disease of native coronary artery without angina pectoris (principal) | CPT/HCPCS: 71260 ==

== ENCOUNTER 2024-09-16 13:45 | Outpatient (AMB) | payer MEDICARE, SELFPAY ==
--- NOTE | 2024-09-16 13:57 | A.OFFVIS_ITS ---
Intake Visit Reasons: follow up s/p Chest CT 09/04/24 Intake Note: Patient presents for s/p chest CT 09/04/24. Allergies YOGI Inhibitors Adverse Reaction (Intermediate, Verified 09/16/24 13:57) cough HPI HPI follow up s/p Chest CT 09/04/24: Details: The patient is an 83-year-old male presenting with right arm fatigue and weakness. The symptoms began following a recent, unspecified procedure. 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 The arm's tiredness has impaired his ability to complete these tasks without frequent rests. Additionally, the coldness in the right hand has been a point of concern, possibly indicating compromised blood flow. The patient's current most significant limitation is an inability to perform former physical activities involving the arms, like push-ups, due to pain and fatigue. Preliminary ultrasound findings suggested an obstruction in the blood vessels supplying the right arm, warranting further imaging with a CT scan to ascertain the exact nature and location of the blockage. [facility] Medical History Obesity Zoster High cholesterol Diabetes mellitus Chronic rheumatic arthritis BPH (benign prostatic hyperplasia) Hypertension Surgical History H/O colonoscopy No pertinent past surgical history Family History Father HTN (hypertension) CAD (coronary artery disease) Diabetes Mother Kidney disease Social History Are you a primary student career development specialist to a significant other at home: No Do you presently have visiting nurse or other home services: No Patient Tobacco Use Status: Former Tobacco user Tobacco use type: Cigarette 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 Review of Systems Const All systems reviewed & are unremarkable except as noted in HPI and below Reports no additional complaints ENT Reports Normal hearing present Card Denies chest pain, Denies chest pain at rest, Denies chest pain with activity and Denies pedal edema Resp Denies cough GI Denies abdominal pain Musc Denies abnormal gait, Denies muscle cramps and Denies radiating pain into limb Skin/Breast Denies skin ulcer and Denies wounds Neuro Reports Normal hearing present and Denies abnormal gait Psych Reports no additional complaints Physical Exam Const General: cooperative, healthy appearing and comfortable Orientation/consciousness: oriented to person, oriented to place and oriented to time HEENT Head: Yes normal to inspection Neck Neck: Yes normal visual inspection Carotids: no bruits Chest Chest palpation & inspection: normal inspection of the chest Resp Effort & Inspection: normal respiratory effort and able to speak in complete sentences Auscultation: clear to auscultation bilaterally, no crackles, no rales, no rhonchi and no wheezes Cardio Other: Left upper extremity palpable brachial radial ulnar pulses Right upper extremity brachial radial ulnar signals only Rate: regular rate Rhythm: regular rhythm Heart sounds: S1 normal heart sound present and S2 normal heart sound present Bruits: no carotid bruits Peripheral pulses: Peripheral pulses 2+ throughout GI Inspection: Yes normal to inspection Skin Wounds: no wounds Hair: normal Neuro General: oriented to person, oriented to place and oriented to time Cranial nerves: Yes CN's II-XII intact bilaterally and Yes Normal hearing present Cognition (Neuro): normal cognition Motor exam (neuro): 5/5 motor strength present throughout Extrem Other: venous exam: No significant superficial varicosities or spider telangiectasias, minimal edema General: No clubbing, No cyanosis and No edema Psych Appearance: grossly normal Mental Status: mental status grossly normal Speech and movement: Normal speech and movement present Results Reviewed Results Reviewed: CT scan was reviewed and I disagree with the findings. There was no mention of the right subclavian. I did reach out to [facility] for clarification. There is a true occlusion. Revision of the report was requested. Written report and images were reviewed. Assessment & Plan Assessment & Plan (1) Right subclavian artery occlusion: Code(s): I70.8 - Atherosclerosis of other arteries Category: Medical Plan: I discussed with the patient the potential diagnosis of a vascular obstruction in his right arm. We reviewed the need for a CT angiogram to visualize blood vessels and identify any blockages accurately. In short he does have a right subclavian artery stenosis/occlusion. He will require right upper extremity endovascular intervention with possible angioplasty and stent. This has been discussed in detail with the patient along with risks, benefits, and complications. This includes but is not limited to bleeding, infection, heart attack, need for emergent surgical repair, limb ischemia, blood vessel damage, bleeding, puncture, kidney injury, bruising, allergic reaction, and skin reaction. The patient demonstrates a clear understanding. We will schedule for the next appropriate time. Thank you for allowing us to assist in this patient's care. Coding Level of Care Code Est Pt Level 4 (33224) Complex EM visit Add On G2211 Diagnoses Right subclavian artery occlusion I70.8
== END 2024-09-16 14:32 | disposition home or self-care (01) ==
LOC: HO.HVS 13:46
PROVIDERS: PCP Internal Medicine; Visit Provider Surgery Vascular Surgery
DX: I70.8 Atherosclerosis of other arteries (principal)
CPT/HCPCS: 99214; G2211

== ENCOUNTER → 2024-09-16 13:45 | Outpatient (BNVA) | payer MEDICARE, SELFPAY | PROVIDERS: PCP Internal Medicine; Visit Provider Surgery Vascular Surgery | DX: I70.8 Atherosclerosis of other arteries (principal) | CPT/HCPCS: 99212 ==

== ENCOUNTER 2024-09-24 05:52 | Day surgery (SDC) | payer MEDICARE, SELFPAY ==
[2024-09-24] VITALS (26 sets, daily range): BP systolic 124–146; BP diastolic 66–77; PULSE 61–69; RESP 10–18; TEMP 35.6–37; O2SAT 94–98; BMI 29.9
[2024-09-24 06:40] LABS: MANUAL DIFF FLAG NO
[2024-09-24 06:45] LABS: Basophils Percent Auto 0.3 % (0-2); Eosinophils Absolute Auto 0.2 X10*3/uL (0.0-0.4); Eosinophils Percent Auto 2.4 % (0-4); Hematocrit 45.6 % (42.0-52.0); Hemoglobin 15.7 g/dl (14.0-18.0); Imm Gran Abs Auto 0.02 X10*3/uL (0.00-0.03); Imm Gran Pct Auto 0.3 % (0.0-0.4); Lymphocytes Absolute Auto 2.7 X10*3/uL (1.2-4.9); Lymphocytes Percent Auto 38.3 % (20-40); Mean Corpuscular HGB Conc 34.4 g/dl (31.0-36.0); Mean Corpuscular Hemoglobin 31.8 pg (27.0-33.0); Mean Corpuscular Volume 92.3 fL (80.0-98.0); Mean Platelet Volume 9.7 fL (9.4-12.4); Monocytes Absolute Auto 0.6 X10*3/uL (0.1-1.2); Monocytes Percent Auto 8.6 % (2-11); Neutrophils Absolute Auto 3.5 x10*3/uL (2.0-8.3); Neutrophils Percent Auto 50.1 % (45-73); Platelet Count 145 X10*3/uL (160-400); Red Blood Count 4.94 X10*6/uL (4.60-5.80); Red Cell Distribution Width 13.2 % (11.0-16.0)
[2024-09-24 06:57] LABS: Blood Urea Nitrogen 19 mg/dL (9-16); Creatinine Clr Calc Pharmacy 61.8; Estimated Glomerular Filt Rate > 60
[2024-09-24] MEDS: fentaNYL citrate/PF 100 MCG/2 ML VIAL 25 MCG IVPUSH (08:05)
[2024-09-24] MEDS: Midazolam HCl 2 MG/2 ML VIAL 0.5 MG IVPUSH (08:05)
[2024-09-24] MEDS: Heparin Sodium,Porcine 10,000 UNIT/10 ML VIAL 3000 UNIT IVPUSH (08:15)
[2024-09-24] MEDS: Heparin Sodium,Porcine 10,000 UNIT/10 ML VIAL 5000 UNIT IVPUSH (08:24)
--- NOTE | 2024-09-24 08:43 | PC.NURSE ---
ACT Result:203 Dr Chu aware
--- NOTE | 2024-09-24 09:44 | P.OP_ITS ---
Operative Note Operative Note Date of Service: 09/24/24 Narrative: Angiogram report from [facility] Preoperative diagnosis: Atherosclerosis of right upper extremity with pain Postoperative diagnosis: Same Procedure: 1. Ultrasound-guided right common femoral access 2. Aortic arch angiogram with selective subclavian and right carotid images 3. Ultrasound-guided right radial artery puncture 4. Right upper extremity imaging Surgeon:Kelvin Chu M.D., FACS, [facility] Social Work Professor:None Anesthesia: Local with moderate conscious sedation. Total intraservice moderate sedation time was 78 minutes. I monitored the patient's level of consciousness and physiologic status continuously throughout the procedure. Specimens:none Drains:none Estimated blood loss: Less than 10 ml Implant: None Indications: 84-year-old gentleman who had a prior surgical procedure developed right upper extremity arm pain after the procedure. Upon CT angiogram there was concern of a subclavian occlusion. He now presents for endovascular intervention The patient has signed the informed consent after reviewing risks, complications, benefits, and alternatives previously discussed with the patient. The patient was given the opportunity to ask any additional questions or voice any concerns. All questions were answered to the patient's satisfaction. Procedure in detail: Patient was brought to the angiography suite prior to which a time-out was called for patient identification and site verification. Bilateral groins were prepped and draped in the standard surgical fashion. Under ultrasound guidance right common femoral was punctured with micro puncture needle and wire. Subsequently a precision 5 Luxembourger sheath was then placed. Bentson wire was advanced to the level of the aorta. 5 Luxembourger Flush catheter was brought up and parked at the level of the renal arteries. Aortogram was then undertaken. Catheter was brought then parked at the aortic arch. Using power injection an arch over view was then undertaken. At this time 3000 units of systemic heparin was administered and based on ACT an additional 5000 units was then given. Using a C2 catheter we then selectively placed the catheter at the innominate artery. We then did glidewire Advantage to try to get into the subclavian. We were able to get into the base of the subclavian and through this imaging was undertaken we also selectively imaged the right carotid artery as well. We made multiple attempts to traverse this occlusion and we were unable to do so. At this time the 5 Luxembourger sheath was left in place but the catheter and wire removed and we turned our attention to the right radial artery. Under ultrasound guidance right radial artery was then punctured 4 Luxembourger sheath was then placed. We brought a glide cath all the way up to the blockage in the subclavian artery. At this time we exchanged out for a Glidewire advantage and we placed a long 5 Luxembourger sheath in the right radial artery. We used multiple wire and catheter exchanges along with multiple orthogonal views and we were just unable to traverse this lesion. After a total of 78 minutes decision was made to terminate the procedure. Catheter wire sheath was removed from the right radial artery and direct pressure was held for 10 minutes in the right groin a CELT closure device was placed. Patient tolerated the procedure well. Returned to recovery with stable vitals. Interpretation of films: 1. Ultrasound demonstrates appropriate femoral access site. Vessel was patent with minimal stenosis. Needle entry was visualized. Image of ultrasound was saved. 2. Aortogram demonstrates appropriate caliber aorta. Minimal disease. 3. Aortic arch demonstrated a bovine arch. 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 No significant disease noted in the arch itself. 4. Subclavian artery imaging from the arm and the chest demonstrated a proximally a 4 cm occlusion. There was the origin but beyond the takeoff of the subclavian bone itself where the artery came across it occludes reconstitutes proximally 4 cm down. Good collateral circulation good flow to the hand. Conclusion: 1. Successful diagnostic angiogram 2. Anticoagulation status: No change This note is constructed using voice recognition software. While every effort has been made to ensure accuracy, accounting manager errors may have been included. Thank you for allowing me to participate in the care of your patient. Yours sincerely, Kelvin Chu MD, FACS, R.P.V.I.
[2024-09-24 13:49] LABS: ACT 153 Celite s (79-173)
[2024-09-24 13:49] LABS: ACT 203 Celite s (79-173)
== END 2024-09-24 11:32 | disposition home or self-care (01) ==
PROVIDERS: PCP Internal Medicine; Visit Provider Surgery Vascular Surgery
DX: E11.51 Type 2 diabetes mellitus with diabetic peripheral angiopathy without gangrene (principal); I70.208 Unspecified atherosclerosis of native arteries of extremities, other extremity; Z79.4 Long term (current) use of insulin; Z79.85 Long-term (current) use of injectable non-insulin antidiabetic drugs; Z79.84 Long term (current) use of oral hypoglycemic drugs; G81.91 Hemiplegia, unspecified affecting right dominant side; M06.9 Rheumatoid arthritis, unspecified; B02.9 Zoster without complications; I10 Essential (primary) hypertension; E78.00 Pure hypercholesterolemia, unspecified; Z88.8 Allergy status to other drugs, medicaments and biological substances; Z87.891 Personal history of nicotine dependence
CPT/HCPCS: 36246; 36415; 75630; 75710; 76937; 82565; 84520; 85025; 85347; 99152; 99153; C1760; C1769; C1887; C1894; J1644; J2250; J2270; J3010; Q9967

== ENCOUNTER → 2024-09-24 05:52 | Outpatient (BNV) | payer MEDICARE, SELFPAY | PROVIDERS: PCP Internal Medicine; Visit Provider Surgery Vascular Surgery | DX: I70.208 Unspecified atherosclerosis of native arteries of extremities, other extremity (principal) | CPT/HCPCS: 36222; 75625; 76937; 99152 ==

== ENCOUNTER 2024-11-12 07:32 | Outpatient (REF) | payer MEDICARE, SELFPAY ==
[2024-11-12 10:19] LABS: Estimated Average Glucose 186 mg/dL; Hemoglobin A1C 254.3733 umol/L; Hemoglobin A1c % 8.1 % (<6.0); Total Hemoglobin (HGBA1C) 3914.0154 umol/L
[2024-11-12 12:21] LABS: Alanine Aminotransferase 25 U/L (0-40); Albumin Level 4.2 g/dL (3.5-5.0); Alkaline Phosphatase 36 U/L (39-117); Anion Gap 13 (12-20); Aspartate Amino Transferase 21 U/L (5-37); Bilirubin Total 0.4 mg/dL (0.0-1.0); Blood Urea Nitrogen 15 mg/dL (9-16); Calcium 9.2 mg/dL (8.4-10.2); Carbon Dioxide 29 mmol/L (22-29); Chloride 105 mmol/L (96-108); Estimated Glomerular Filt Rate > 60; Glucose Random 142 mg/dL (60-115); Potassium 3.9 mmol/L (3.3-5.1); Sodium 143 mmol/L (135-145)
== END 2024-11-12 07:33 | disposition home or self-care (01) ==
LOC: HO.10HDL 07:32
PROVIDERS: Visit Provider Internal Medicine
DX: E11.65 Type 2 diabetes mellitus with hyperglycemia (principal); E78.00 Pure hypercholesterolemia, unspecified; I10 Essential (primary) hypertension; I73.9 Peripheral vascular disease, unspecified
CPT/HCPCS: 36415; 80053; 83036

== ENCOUNTER 2025-02-12 08:10 | Outpatient (REF) | payer MEDICARE, SELFPAY ==
--- OUTSIDE RECORDS SUMMARY | 2025-02-12 08:44 | XMS_ITS | Patient Health Record ---
Author Organization [facility] Address [address] [place] [id number] Care Team Providers Care Hand Turner Name Role Phone Iván Pfeiffer Unavailable [phone] Reason For Referral No Information Plan Of Treatment No Information
[2025-02-12 11:43] LABS: Alanine Aminotransferase 29 U/L (0-40); Albumin Level 4.3 g/dL (3.5-5.0); Alkaline Phosphatase 46 U/L (39-117); Anion Gap 13 (12-20); Aspartate Amino Transferase 23 U/L (5-37); Blood Urea Nitrogen 16 mg/dL (9-16); Calcium 8.9 mg/dL (8.4-10.2); Carbon Dioxide 26 mmol/L (22-29); Chloride 107 mmol/L (96-108); Cholesterol 111 mg/dL (<200); Estimated Glomerular Filt Rate > 60; HDL Cholesterol 37 mg/dL (>40); Potassium 4.2 mmol/L (3.3-5.1); Sodium 142 mmol/L (135-145); Total Protein 6.8 g/dL (6.5-8.0); Triglycerides 106 mg/dL (<150)
[2025-02-12 11:50] LABS: Hemoglobin A1C 235.0372 umol/L; Total Hemoglobin (HGBA1C) 3783.5420 umol/L
== END 2025-02-12 08:11 | disposition home or self-care (01) ==
LOC: HO.10HDL 08:10
PROVIDERS: Visit Provider Internal Medicine
DX: E11.9 Type 2 diabetes mellitus without complications (principal); E78.00 Pure hypercholesterolemia, unspecified; I70.8 Atherosclerosis of other arteries; I73.9 Peripheral vascular disease, unspecified
CPT/HCPCS: 36415; 80053; 80061; 83036

== ENCOUNTER 2025-05-14 07:55 | Outpatient (REF) | payer MEDICARE, SELFPAY ==
--- OUTSIDE RECORDS SUMMARY | 2025-05-14 08:10 | XMS_ITS | Patient Health Record ---
Author Organization [facility] Address [address] [place] [id number] Care Team Providers Care Folder Inspector Name Role Phone Iván Pfeiffer Unavailable [phone] Reason For Referral No Information Plan Of Treatment No Information
[2025-05-14 11:43] LABS: Alanine Aminotransferase 21 U/L (0-40); Albumin Level 4.5 g/dL (3.5-5.0); Alkaline Phosphatase 35 U/L (39-117); Anion Gap 11 (12-20); Aspartate Amino Transferase 19 U/L (5-37); Blood Urea Nitrogen 17 mg/dL (9-16); Calcium 9.4 mg/dL (8.4-10.2); Carbon Dioxide 27 mmol/L (22-29); Chloride 108 mmol/L (96-108); Estimated Glomerular Filt Rate > 60; Potassium 3.9 mmol/L (3.3-5.1); Sodium 142 mmol/L (135-145); Total Protein 7.0 g/dL (6.5-8.0)
== END 2025-05-14 07:56 | disposition home or self-care (01) ==
LOC: HO.10HDL 07:55
PROVIDERS: Visit Provider Internal Medicine
DX: E11.9 Type 2 diabetes mellitus without complications (principal); I10 Essential (primary) hypertension; E78.00 Pure hypercholesterolemia, unspecified; Z68.32 Body mass index [BMI] 32.0-32.9, adult
CPT/HCPCS: 36415; 80053; 83036